=== PATIENT | male | born 1950 | race Two or more races ===

== ENCOUNTER 2024-07-08 10:12 | Emergency (ER) | payer MEDICARE, MEDICAID, SELFPAY ==
[2024-07-08 10:23] VITALS: BP 120/71; PULSE 86; RESP 16; TEMP 36.9; O2SAT 100; BMI 21.8
--- NOTE | 2024-07-08 10:26 | XR_ITS ---
Examination: Duplex scan of the lower extremity, unilateral right complete Date and time of exam: July 08, 2024 1147 hours INDICATIONS: Right foot and leg pain beginning 2 weeks ago Technique: Duplex scan of the extremity veins using B-mode/grayscale imaging and Doppler spectral analysis and color flow Attention is directed to internal echogenicity, compression and augmentation involving these veins, color flow assessment, spectral analysis Findings: Major deep venous structures in the extremity demonstrate normal course and caliber. There is no evidence of deep vein thrombosis. Normal color flow and spectral analysis Impression: Negative for DVT..
--- NOTE | 2024-07-08 10:26 | XR_ITS ---
Examination: Arterial duplex lower extremity study unilateral right lower extremity Date and time of exam: July 08, 2024 1155 hours INDICATIONS: Nonhealing foot ulcers 22 weeks ago Findings: Duplex sonographic imaging of the lower extremity arteries using B-mode/Woodall scale imaging and Doppler spectral analysis and color flow. Right common femoral artery demonstrates triphasic flow. Right superficial femoral artery demonstrates monophasic flow. Right popliteal artery demonstrates monophasic flow. Right posterior tibial artery demonstrated monophasic flow. Impression: Significant peripheral obstructive arterial disease right lower extremity Consider correlation with CTA abdominal aorta iliofemoral runoff post contrast follow-up
--- NOTE | 2024-07-08 10:27 | PD.EDRME ---
Rapid Medical Screening Exam RME Arrival date/time: 07/08/24 10:12 74-year-old diabetic male presents emergency department complaints of infection to the right foot. Patient reports being on Augmentin per the daughter symptoms not improved Chief Complaint: Skin/Abscess/Foreign Body Time Seen by Provider: 07/08/24 10:14 Vital signs: Vital Signs Temperature 98.4 F 07/08/24 10:23 Pulse Rate 86 07/08/24 10:23 Respiratory Rate 16 07/08/24 10:23 Blood Pressure 120/71 07/08/24 10:23 Pulse Oximetry (%) 100 07/08/24 10:23 Oxygen Delivery Method Room Air 07/08/24 10:23
[2024-07-08 11:35] LABS: Basophils # (Auto) 0.1 Thou/mm3 (0.0-0.2); Basophils % (Auto) 1 % (0-2.5); Eosinophils # (Auto) 0.1 Thou/mm3 (0.0-0.5); Eosinophils % (Auto) 1 % (0-10); Hematocrit 36.8 % (41.0-53.0); Hemoglobin 12.2 g/dL (13.5-16.0); Immature Granulocytes % (Auto) 0 % (0-0); Immature Granulocytes Auto 0.03 Thou/mm3 (0.00-0.00); Lymphocytes # (Auto) 2.1 Thou/mm3 (1.0-4.8); Lymphocytes % (Auto) 23 % (10-50); Mean Corpuscular HGB Conc 33.2 g/dl (31.0-37.0); Mean Corpuscular Hemoglobin 29.5 pg (25.0-35.0); Mean Corpuscular Volume 89 fL (80-100); Monocytes # (Auto) 0.5 Thou/mm3 (0.0-0.8); Monocytes % (Auto) 6 % (0-12); Neutrophils # (Auto) 6.1 Thou/mm3 (1.8-7.7); Neutrophils % (Auto) 68 % (37-80); Nucleated Red Blood Cell % 0 /100 WBC (0); Platelet Count 311 Thou/mm3 (140-440); RDW Standard Deviation 44.5 fL (35.1-43.9); Red Blood Count 4.13 Miln/mm3 (4.50-5.90); White Blood Count 8.9 Thou/mm3 (3.8-10.6)
[2024-07-08 11:51] LABS: Partial Thromboplastin Time 32.3 Seconds (22.0-36.0); Prothrombin Time 11.2 Seconds (9.0-12.2)
[2024-07-08 12:02] LABS: Sed Rate (ESR) 36 mm/hr (0-20)
[2024-07-08 12:11] LABS: Alanine Aminotransferase 22 U/L (10-49); Albumin, Serum 4.6 gm/dL (3.4-4.8); Albumin/Globulin Ratio 1.8 (1.2-2.2); Alkaline Phosphatase 129 U/L (46-116); Anion Gap 5 (7-16); Aspartate Amino Transferase 30 U/L (0-34); BUN/Creatinine Ratio 16 Ratio (12-20); Bilirubin,Total 0.6 mg/dL (0.3-1.2); Blood Urea Nitrogen 16 mg/dL (9-23); C-Reactive Protein < 0.4 mg/dL (0.0-0.9); Calcium 9.7 mg/dL (8.3-10.6); Calcium (Corrected) 9.7 mg/dL (8.5-10.1); Carbon Dioxide 27.1 mMol/L (20.0-31.0); Chloride 105 mMol/L (98-107); Estimated Creatinine Clearance 53.6 mL/min (>60); Globulin 2.6 gm/dL (2.3-3.5); Glucose 256 mg/dL (74-106); Osmolality,Calculated 284 (275-295); Potassium 4.3 mMol/L (3.4-5.1); Procalcitonin 0.05 ng/ml (0.0-0.49); Sodium 137 mMol/L (136-145); Total Protein 7.2 gm/dL (5.7-8.2); eGFR > 60 See Note
[2024-07-08 14:42] VITALS: BP 148/74; PULSE 79; RESP 16; TEMP 36.9; O2SAT 100
--- NOTE | 2024-07-08 14:46 | EDNOTE_ITS ---
Lower Extremity Injury RME/HPI General Chief Complaint: Skin/Abscess/Foreign Body Stated Complaint: RIGHT FOOT WOUNDS Time Seen by Provider: 07/08/24 10:14 Source: patient and family Arrival date/time: 07/08/24 10:12 This is a 74-year-old male with significant past medical history of hypertension, diabetes, PAD with stents. Who presented to the emergency department for complaints of right lower leg pain and 3 ulcers. According to the patient he seen his PCP today and was sent over to rule out osteomyelitis. According to the patient daughter she did have an outpatient x-ray which demonstrated no bone destruction, he did receive Augmentin outpatient which she completed for 3 sores that he has on his right lateral foot. According to the patient he has not had any fever no chills. He does have a history of severe PAD in which he follows up with [facility] vascular in which she has had multiple stents and currently on Plavix. Mode of arrival: ambulatory Limitations: no limitations RME / HPI RME / HPI Narrative: 07/08/24 10:12 74-year-old diabetic male presents emergency department complaints of infection to the right foot. Patient reports being on Augmentin per the daughter symptoms not improved Related Data Home Medications ?Medication ?Instructions ?Recorded ?Confirmed insulin lispro 100 unit/mL 4 - 6 unit subcut BID 06/15/19 06/15/19 subcutaneous pen (Humalog KwikPen (U-100) Insulin) Allergies Allergy/AdvReac Type Severity Reaction Status Date / Time ibuprofen Allergy Intermediate Hives Verified 11/03/20 13:19 Review of Systems Review of Systems Systems Reviewed: All systems reviewed, normal except as documented Narrative Review of Systems: Gen: No fever, no chills, no weight loss EYES: No discharge, no visual changes, no pain HEENT: No ear pain, no congestion, no sore throat PULM: No shortness of breath, no cough, no congestion CV: No chest pain, no dyspnea on exertion, no palpitations GI: No nausea, no vomiting, no diarrhea, no pain, no constipation : No frequency, no urgency,? no dysuria Musc/skel:+chronic foot/ leg pain, no back pain Skin: +ulcer to right foot Psyc: No hallucinations, no depression Heme/Lymph: No easy bleeding or bruising tendencies Neuro: No weakness, no headache ED Exam General Limitations: Present no limitations General appearance: Present alert and in no apparent distress Head Head exam: Present atraumatic Eye Eye exam: Present normal appearance, PERRL and EOMI ENT ENT exam: Present normal exam, normal oropharynx and mucous membranes moist Neck Neck exam: Present normal inspection, full ROM and trachea midline Chest Chest inspection: Present normal inspection and symmetric chest wall rise Respiratory Respiratory exam: Present normal lung sounds bilaterally Cardiovascular Cardiovascular exam: Present regular rate, normal rhythm and normal heart sounds Abdominal Exam Abdominal exam: Present soft and normal bowel sounds; Absent distention, tenderness or guarding Extremities Exam Extremities exam: Present full ROM Expanded Lower Extremity Exam Lower leg exam: Absent tenderness, swelling or Homans' sign Top foot image: 2 1. #1Right lateral foot +small lesion, does not appear infected #2-Mild punctuate area noted to dorsum of right foot +pulses, no cyanosis or discoloration cap refill normal Neurovascular/Tendon exam: Present normal capillary refill; Absent foot drop Gait: observed and normal Back Exam Back exam: Present normal inspection and full ROM Neurological Exam Neurological exam: Present alert, oriented X3 and CN II-XII intact Psychiatric Psychiatric exam: Present normal affect and normal mood Skin Skin exam: Present warm, dry, intact and normal color Course Quality Measures none Orders Category Date Time Status Diet Carbohydrate Consistent Diet 07/08/24 Lunch Active US arterial duplex LE RT Stat Exams 07/08/24 10:26 Completed US venous doppler LE RT Stat Exams 07/08/24 10:26 Completed Blood Culture (Lab) Stat Lab 07/08/24 10:48 Received CBC Stat Lab 07/08/24 10:52 Completed CMP [Comprehensive Metabolic Panel] Stat Lab 07/08/24 10:52 Completed CRP [C-Reactive Protein] Stat Lab 07/08/24 10:52 Completed ESR [Sed Rate (ESR)] Stat Lab 07/08/24 10:52 Completed Lactic Acid [Lactate (Lactic Acid)] Stat Lab 07/08/24 10:52 Completed PT [Prothrombin Time with INR] Stat Lab 07/08/24 10:52 Completed PTT [Partial Thromboplastin Time] Stat Lab 07/08/24 10:52 Completed Procalcitonin Stat Lab 07/08/24 10:52 Completed Vital Signs Vital signs: Vital Signs Temperature 98.4 F 07/08/24 10:23 Pulse Rate 86 07/08/24 10:23 Respiratory Rate 16 07/08/24 10:23 Blood Pressure 120/71 07/08/24 10:23 Pulse Oximetry (%) 100 07/08/24 10:23 Oxygen Delivery Method Room Air 07/08/24 10:23 Extremity Injury, Lower MDM Narrative MDM Narrative:: This is a 74-year-old male with significant past medical history of hypertension, diabetes, PAD with stents. Who presented to the emergency department for complaints of right lower leg pain and 3 ulcers. According to the patient he seen his PCP today and was sent over to rule out osteomyelitis. According to the patient daughter she did have an outpatient x-ray which demonstrated no bone destruction, he did receive Augmentin outpatient which she completed for 3 sores that he has on his right lateral foot. According to the patient he has not had any fever no chills. He does have a history of severe PAD in which he follows up with [facility] in which she has had multiple stents and currently on Plavix. Patient has chronic PAD. Foot does not appear to have osteomyelitis or infection. Patient has no leukocytosis, no bandemia. Patient's pain and sores are mostly related to his severe peripheral artery disease. Patient does have a follow-up appointment with vascular for [place] on Saturday for procedure. At this time I believe the patient is this position for discharge and follow-up closely with PCP and his vascular surgeon. Strict ER precautions to return if there is any changes in the temperature or pain or pulses in his feet. Family agreed with plan Patient data External records reviewed:: [facility] previous records Clinical information provided by:: patient and family Social determinants that could affect healthcare access:: none Patient has the following chronic illnesses:: Diabetes, PAD, hypertension, hyperlipidemia How is presenting disease/condition affected by chronic disease/condition?: e xacerbated by Evaluation data The following diagnostics were reviewed and interpreted by me:: lab results and radiology exam(s) Lab and/or radiology exams considered but not ordered:: yes Interpretation Summary: Examination: Duplex scan of the lower extremity, unilateral right complete Date and time of exam: July 08, 2024 1147 hours INDICATIONS: Right foot and leg pain beginning 2 weeks ago Technique: Duplex scan of the extremity veins using B-mode/grayscale imaging and Doppler spectral analysis and color flow Attention is directed to internal echogenicity, compression and augmentation involving these veins, color flow assessment, spectral analysis Findings: Major deep venous structures in the extremity demonstrate normal course and caliber. There is no evidence of deep vein thrombosis. Normal color flow and spectral analysis Impression: Negative for DVT.. Examination: Arterial duplex lower extremity study unilateral right lower extremity Date and time of exam: July 08, 2024 1155 hours INDICATIONS: Nonhealing foot ulcers 22 weeks ago Findings: Duplex sonographic imaging of the lower extremity arteries using B-mode/Woodall scale imaging and Doppler spectral analysis and color flow. Right common femoral artery demonstrates triphasic flow. Right superficial femoral artery demonstrates monophasic flow. Right popliteal artery demonstrates monophasic flow. Right posterior tibial artery demonstrated monophasic flow. Impression: Significant peripheral obstructive arterial disease right lower extremity Consider correlation with CTA abdominal aorta iliofemoral runoff post contrast follow-up Examination: Foot, right, 3 views Technique: AP, oblique, lateral views foot, 3 views Date and time of exam: July 02, 2024 0958 hours INDICATIONS: Patient stepped on a nail one month ago with injury to the foot, redness swelling and pain post injury FINDINGS: Severe osteopenia Soft tissue vascular calcification. No fracture No celestino cortical bone destruction IMPRESSION: No celestino cortical bone destruction If symptoms persist, consider repeat MRI foot without contrast follow-up Medications / Prescriptions Medications or Prescriptions considered but not ordered:: no Medication administrations:: no Consultations Consultation(s) initiated? (list below): No Diagnosis Extremity Injury, Lower Differential Diagnosis: ankle sprain and strain, acute internal derangement of knee and other (Arterial occlusion, DVT, osteomyelitis) Most likely diagnosis given after review of the tests above:: Peripheral artery disease, Admission Indicated Admission indicated?: not indicated Admission Request Was there a request for admission?: No Disposition Plan Disposition Plan: Discharge Discharge Attestation Discharge Attestation: The patient and all family members were given an opportunity to ask questions and understood the discharge instructions. Discharge instructions specifically effects, indications for sooner follow up or return to the emergency department, and the expected course of current diagnosis. 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 We did go ahead and fax his information over of both imaging You might want to ask for a disc with imaging at medical records, before your appointment. As discussed your symptoms are mostly related to PAD. If you gallop any symptoms of cold and painful foot please return to the emergency department as soon as possible. Print Language: Nepali Stand Alone Forms: Jami Award Info., Patient Portal Info Letter PA/JAYME Supervising Physician DAILY/JAYME Supervising Physician: Dr. Bautista
== END 2024-07-08 15:11 | disposition home or self-care (01) ==
PROVIDERS: Nurse Practitioner Primary Care; Emergency Provider Emergency Medicine; PCP Physician Assistant
DX: E11.621 Type 2 diabetes mellitus with foot ulcer (principal); E11.51 Type 2 diabetes mellitus with diabetic peripheral angiopathy without gangrene; I70.235 Atherosclerosis of native arteries of right leg with ulceration of other part of foot; L97.519 Non-pressure chronic ulcer of other part of right foot with unspecified severity
CPT/HCPCS: 36415; 80053; 83605; 84145; 85025; 85610; 85652; 85730; 86140; 87040; 93926; 93971; 99284

== ENCOUNTER → 2024-07-30 | Outpatient (CLI) | payer MEDICARE, MEDICAID, SELFPAY ==
[2024-07-30 16:06] LABS: Basophils # (Auto) 0.1 Thou/mm3 (0.0-0.2); Basophils % (Auto) 1 % (0-2.5); Eosinophils # (Auto) 0.1 Thou/mm3 (0.0-0.5); Eosinophils % (Auto) 1 % (0-10); Hematocrit 34.6 % (41.0-53.0); Hemoglobin 11.3 g/dL (13.5-16.0); Immature Granulocytes % (Auto) 0 % (0-0); Immature Granulocytes Auto 0.02 Thou/mm3 (0.00-0.00); Lymphocytes # (Auto) 2.4 Thou/mm3 (1.0-4.8); Lymphocytes % (Auto) 32 % (10-50); Mean Corpuscular HGB Conc 32.7 g/dl (31.0-37.0); Mean Corpuscular Hemoglobin 29.4 pg (25.0-35.0); Mean Corpuscular Volume 90 fL (80-100); Monocytes # (Auto) 0.4 Thou/mm3 (0.0-0.8); Monocytes % (Auto) 5 % (0-12); Neutrophils # (Auto) 4.6 Thou/mm3 (1.8-7.7); Neutrophils % (Auto) 60 % (37-80); Nucleated Red Blood Cell % 0 /100 WBC (0); Platelet Count 371 Thou/mm3 (140-440); Red Blood Count 3.85 Miln/mm3 (4.50-5.90); White Blood Count 7.6 Thou/mm3 (3.8-10.6)
[2024-07-30 16:26] LABS: Alanine Aminotransferase 20 U/L (10-49); Albumin, Serum 4.3 gm/dL (3.4-4.8); Alkaline Phosphatase 105 U/L (46-116); Anion Gap 7 (7-16); Aspartate Amino Transferase 29 U/L (0-34); BUN/Creatinine Ratio 14 Ratio (12-20); Bilirubin,Total 0.5 mg/dL (0.3-1.2); Blood Urea Nitrogen 18 mg/dL (9-23); Calcium 9.3 mg/dL (8.3-10.6); Calcium (Corrected) 9.3 mg/dL (8.5-10.1); Chloride 106 mMol/L (98-107); Creatinine (Component) 1.3 mg/dL (0.6-1.3); Globulin 2.1 gm/dL (2.3-3.5); Glucose 156 mg/dL (74-106); Osmolality,Calculated 282 (275-295); Potassium 4.3 mMol/L (3.4-5.1); Sodium 139 mMol/L (136-145); Total Protein 6.4 gm/dL (5.7-8.2); eGFR 58 See Note
== END | disposition home or self-care (01) ==
LOC: COPL 15:16
PROVIDERS: PCP Physician Assistant; Referring Provider Physician Assistant; Visit Provider Physician Assistant
DX: L03.115 Cellulitis of right lower limb (principal)
CPT/HCPCS: 36415; 80053; 85025

== ENCOUNTER 2024-09-25 14:48 | Emergency (ER) | payer MEDICARE, MEDICAID, SELFPAY ==
[2024-09-25 15:12] VITALS: PULSE 76; RESP 18; O2SAT 98; BMI 22.1
[2024-09-25 15:24] VITALS: BP 132/66; PULSE 75; RESP 18; TEMP 36.8; O2SAT 100
--- NOTE | 2024-09-25 15:46 | XR_ITS ---
Examination: Duplex scan of the upper extremity, unilateral right Date and time of exam: September 25, 2024 1613 hrs. Indications: Right arm swelling and pain today Technique: Duplex scan of the extremity veins using B-mode/grayscale imaging and Doppler spectral analysis and color flow Attention is directed to internal echogenicity, compression and augmentation involving these veins, color flow assessment, spectral analysis Findings: Major deep venous structures in the extremity demonstrate normal course and caliber. There is no evidence of deep vein thrombosis. Normal color flow and spectral analysis Impression: Negative for DVT
--- NOTE | 2024-09-25 17:26 | EDNOTE_ITS ---
<Statement entered by Moriah Roe MD - 09/29/24 07:14> As co-signing physician, I was present and available for consult prn. I concur with the plan and care as documented by the midlevel provider. ED Extremity Problem RME/HPI General Chief complaint: Extremity Problem,Nontraumatic Stated complaint: PICC LINE ISSUES Time Seen by Provider: 09/25/24 15:24 Source: patient and family Arrival date/time: 09/25/24 14:48 This is a 74-year-old male who presented to the emergency department with complaints of possible swelling at the site of his PICC line. The patient has had the PICC line since August this year for IV antibiotics for history of osteomyelitis. Patient was sent [facility] by [facility] for an ultrasound to rule out DVT, and to assess the functionality of the PICC line. Patient reports every time he has the medication administered he has some slight pain at that site. No reports of chest pain, shortness of breath no reports of fever or chills. Mode of arrival: ambulatory Limitations: no limitations Related Data Home Medications ?Medication ?Instructions ?Recorded ?Confirmed insulin lispro 100 unit/mL 4 - 6 unit subcut BID 06/1506/15/19 subcutaneous pen (Humalog KwikPen (U-100) Insulin) Allergies Allergy/AdvReac Type Severity Reaction Status Date / Time ibuprofen Allergy Intermediate Hives Verified 11/03/20 13:19 Review of Systems Review of Systems Systems Reviewed: All systems reviewed, normal except as documented Narrative Review of Systems: Gen: No fever, no chills, no weight loss EYES: No discharge, no visual changes, no pain HEENT: No ear pain, no congestion, no sore throat PULM: No shortness of breath, no cough, no congestion CV: No chest pain, no dyspnea on exertion, no palpitations GI: No nausea, no vomiting, no diarrhea, no pain, no constipation : No frequency, no urgency, no dysuria Musc/skel: No joint pain, no back pain Skin: No rash Psyc: No hallucinations, no depression Heme/Lymph: No easy bleeding or bruising tendencies Neuro: No weakness, no headache ED Exam General Limitations: Present no limitations General appearance: Present alert and in no apparent distress Head Head exam: Present atraumatic Eye Eye exam: Present normal appearance, PERRL and EOMI ENT ENT exam: Present normal exam, normal oropharynx and mucous membranes moist Neck Neck exam: Present normal inspection, full ROM and trachea midline Chest Chest inspection: Present normal inspection and symmetric chest wall rise Respiratory Respiratory exam: Present normal lung sounds bilaterally Cardiovascular Cardiovascular exam: Present regular rate, normal rhythm and normal heart sounds Abdominal Exam Abdominal exam: Present soft and normal bowel sounds Extremities Exam Extremities exam: Present normal inspection, full ROM and other (Right upper arm PICC line site appears normal no swelling no tenderness no ecchymosis.) Back Exam Back exam: Present normal inspection and full ROM Neurological Exam Neurological exam: Present alert, oriented X3 and CN II-XII intact Psychiatric Psychiatric exam: Present normal affect and normal mood Skin Skin exam: Present warm, dry, intact and normal color Course Quality Measures none Orders Category Date Time Status Miscellaneous Nursing Order NOW Care 09/25/24 15:46 Completed US venous doppler UE RT Stat Exams 09/25/24 15:46 Completed Vital Signs Vital signs: Vital Signs Temperature 98.2 F 09/25/24 15:24 Pulse Rate 75 09/25/24 15:24 Respiratory Rate 18 09/25/24 15:24 Blood Pressure 132/66 H 09/25/24 15:24 Pulse Oximetry (%) 100 09/25/24 15:24 Oxygen Delivery Method Room Air 09/25/24 15:24 Extremity Problem MDM Narrative MDM Narrative:: This is a 74-year-old male here from [facility] in evaluation of his PICC line to his right upper forearm. Patient reports every time he has his medication infused he has mild pain at the injection site. There is no swelling tenderness upon palpation. His PICC line was assessed by a nurse which flushed and he was able to have return of blood without any difficulty. Patient denied pain at the time of axis. There was an ultrasound done of that limb which demonstrated negative for DVT. I discussed with patient if he continues to have pain or difficulties with the PICC line he might need it changed and this can be done as outpatient basis. Advised to follow-up with his PCP or return to the emergency department this any worsening symptoms any condition. Patient data External records reviewed:: [facility] previous records Clinical information provided by:: patient Social determinants that could affect healthcare access:: none Patient has the following chronic illnesses:: History of severe PAD, hypertension, hyperlipidemia, diabetes How is presenting disease/condition affected by chronic disease/condition?: exacerbated by Evaluation data The following diagnostics were reviewed and interpreted by me:: radiology exam(s) Lab and/or radiology exams considered but not ordered:: no Interpretation Summary: Examination: Duplex scan of the upper extremity, unilateral right Date and time of exam: September 25, 2024 1613 hrs. Indications: Right arm swelling and pain today Technique: Duplex scan of the extremity veins using B-mode/grayscale imaging and Doppler spectral analysis and color flow Attention is directed to internal echogenicity, compression and augmentation involving these veins, color flow assessment, spectral analysis Findings: Major deep venous structures in the extremity demonstrate normal course and caliber. There is no evidence of deep vein thrombosis. Normal color flow and spectral analysis Impression: Negative for DVT Medications / Prescriptions Medications or Prescriptions considered but not ordered:: No Medication administrations:: No Consultations Consultation(s) initiated? (list below): No Diagnosis Extremity Problem Differential Diagnosis: cellulitis, superficial thrombophlebitis, deep venous thrombosis of upper extremity and lower extremity edema Most likely diagnosis given after review of the tests above:: Access to PICC line. Admission Indicated Admission indicated?: not indicated Admission Request Was there a request for admission?: No Disposition Plan Disposition Plan: Discharge Discharge Attestation Discharge Attestation: The patient and all family members were given an opportunity to ask questions and understood the discharge instructions. Discharge instructions specifically effects, indications for sooner follow up or return to the emergency department, and the expected course of current diagnosis. Patient condition: Stable Discharge Plan Plan Patient Disposition: HOME (Self Care) Patient condition on transfer: Stable Prescriptions/Referrals Prescriptions/Med Rec: No Action insulin lispro [Humalog KwikPen Insulin] 100 unit/mL insulin pen 4 - 6 unit subcut BID Patient Comments: inject SUBCUTANEOUSLY 4 TO 6 units three times a day before meals Referrals: Shahida Mackenzie PA-C [Primary Care Provider] - In 1 week Problem List Clinical Impression: Encounter for peripherally inserted central catheter (PICC) flush Patient/Caregiver Discharge Instructions Discharge Activity: activity as tolerated Education Materials: Caring for Your PICC Dc Additional Instructions: Your ultrasound of your upper limb is negative for any blood clots. The area appears to be nonswollen no infection. Your PICC line was flushed without any issues. Please follow-up with your primary doctor or clinic as directed. Return to the emergency department this any worsening symptoms change in condition. Print Language: Slovak Stand Alone Forms: Jami Award Info., Patient Portal Info Letter PA/ELEVATED MOTORMAN Supervising Physician PA/ELEVATED MOTORMAN Supervising Physician: Dr. Jenkins
--- NOTE | 2024-09-25 18:05 | PC.NURSE ---
report given to Emilia riley at [facility]
== END 2024-09-25 18:25 | disposition skilled nursing facility (03) ==
PROVIDERS: Emergency Provider Emergency Medicine; PCP Physician Assistant
DX: Z45.2 Encounter for adjustment and management of vascular access device (principal); M79.601 Pain in right arm; E11.51 Type 2 diabetes mellitus with diabetic peripheral angiopathy without gangrene; E78.5 Hyperlipidemia, unspecified; I10 Essential (primary) hypertension
CPT/HCPCS: 93971; 99284

== ENCOUNTER → 2024-10-09 | Outpatient (CLI) | payer MEDICARE, MEDICAID, SELFPAY ==
--- NOTE | 2024-10-09 | XR_ITS ---
Examination: Foot, right, 3 views Technique: AP, oblique, lateral views foot, 3 views Date and time of exam: October 09, 2024 1246 hours Comparison July 02, 2024 INDICATIONS: Right foot redness swelling and pain months, patient stepped on a nail May 2024 FINDINGS: Severe osteopenia Soft tissue defect at the fifth metatarsophalangeal joint Cortical bone destruction involving the distal fifth metatarsal No fracture IMPRESSION: Osteomyelitis distal fifth metatarsal Consider repeat MRI foot without contrast follow-up
== END | disposition home or self-care (01) ==
LOC: CDIM 11:41
PROVIDERS: Referring Provider Podiatrist; Visit Provider Podiatrist
DX: M86.8X7 Other osteomyelitis, ankle and foot (principal)
CPT/HCPCS: 73630

== ENCOUNTER → 2024-11-16 | Outpatient (CLI) | payer MEDICARE, MEDICAID, SELFPAY ==
--- NOTE | 2024-11-16 07:00 | XR_ITS ---
Examination: MRI right foot, without contrast Date and time of exam: November 16, 2024 0720 hours Comparison MRI foot October 31, 2023 INDICATIONS: Nonhealing wound right foot 3 months, difficulty walking, MRI foot October 31, 2023 soft tissue defect in the distal fifth metatarsal but no celestino cortical bone destruction Technique: Multiple axial sagittal and coronal images of the right foot have been obtained with the Siemens high-resolution 1.5 Luanne MRI scanner. Images obtained include T2-weighted fat-suppressed sagittal sections, TR 3500, TE 46, T2 weighted coronal fat suppressed images, TR 3050, TE 84, T2-weighted transverse fat suppressed images, TR 3260, TE 63, proton density transverse images, TR 4720 TE 46, and T1 weighted coronal images, TR 560, TE 13. Findings: Early cortical bone erosion distal fifth metatarsal on the lateral side, axial image 17 with associated soft tissue infection No soft tissue abscess Proximal and distal phalanges fifth digit intact Edema dorsum of the foot IMPRESSION: Early osteomyelitis distal fifth metatarsal
== END | disposition home or self-care (01) ==
PROVIDERS: PCP Physician Assistant; Referring Provider Podiatrist; Visit Provider Podiatrist
DX: M86.8X7 Other osteomyelitis, ankle and foot (principal)
CPT/HCPCS: 73718

== ENCOUNTER 2025-04-27 20:46 | Emergency (ER) | payer MEDICARE, MEDICAID, SELFPAY ==
--- NOTE | 2025-04-27 20:51 | PD.EDADULT ---
ED General RME/HPI General Chief complaint: Altered Mental Status Stated complaint: LOW BLOOD SUGAR Time Seen by Provider: 04/27/25 20:50 Arrival date/time: 04/27/25 20:46 CC: Hypoglycemia HPI patient presents to the ER via EMS after being found passed out in a [employer] function. Initial blood glucose was 41, then patient was given D25, and at which time the patient became awake and alert. The patient per report from EMS has a no focal deficits Glascow coma 15 states he took insulin but did not eat anything. Patient denies any pain. EMS reports stable vital signs and route. Related Data Home Medications ?Medication ?Instructions ?Recorded ?Confirmed insulin lispro 100 unit/mL 4 - 6 unit subcut BID 06/15/19 06/15/19 subcutaneous pen (Humalog KwikPen (U-100) Insulin) Allergies Allergy/AdvReac Type Severity Reaction Status Date / Time ibuprofen Allergy Intermediate Hives Verified 04/27/25 21:16 Review of Systems Review of Systems Narrative Review of Systems: GEN: No fever, no chills, no weight loss EYES: No discharge, no visual changes, no pain HEENT: No ear pain, no congestion, no sore throat PULM: No shortness of breath, no cough, no congestion CV: No chest pain, no dyspnea on exertion, no palpitations GI: No nausea, no vomiting, no diarrhea, no pain, no constipation : No frequency, no urgency, no dysuria MUSC/SKEL: No joint pain, no back pain SKIN: No rash PSYCH: No hallucinations, no depression HEME/LYMPH: No easy bleeding or bruising tendencies NEURO: No weakness, no headache ED Exam Narrative Physical exam: [General: Not in any acute distress Head normocephalic HEENT: Eyes pupils are PERRLA EOMs are intact mouth pink dry membranes uvula is midline swallow symmetrical phonation is normal. All other subsystems of HEENT are within acceptable limits Neck is supple nontender Chest equal chest rise nontender to palpation Respiratory: Clear to auscultation no wheezes crackles or rubs CV: Rate rhythm is regular no murmurs rubs or clicks Abdomen is soft nontender no masses positive bowel sounds all 4 quadrants Back: No CVA tenderness no spinous process tenderness from cervical spine thoracic and lumbar spine Skin: Intact no petechiae rash induration ulceration or crepitus Extremities: Moving all extremity against resistance cap refill less than 2 seconds neurosensory intact Neuro: Awake alert oriented x3 Glascow coma 15 no focal deficits] Course Course Course Narrative: Repeat Accu-Chek at 2130 shows 148. The patient's initial Accu-Chek was 41 upon initial assessment by EMS, after D10 the patient went to 260 and now was decreased to 248. In the interim the patient received D10 he has eaten a half a sandwich, drink 1 box of apple juice. 2247, blood sugars 140. Patient to be discharged health Quality Measures none Orders Category Date Time Status Glucose [Bedside Blood Glucose] Q1HR Care 04/27/25 20:51 Active CBC Stat Lab 04/27/25 21:00 Completed CMP [Comprehensive Metabolic Panel] Stat Lab 04/27/25 21:00 Completed Vital Signs Vital signs: Vital Signs Temperature 97.6 F 04/27/25 20:57 Pulse Rate 65 04/27/25 20:57 Respiratory Rate 18 04/27/25 20:57 Blood Pressure 160/77 H 04/27/25 20:57 Pulse Oximetry (%) 100 04/27/25 20:57 Oxygen Delivery Method Room Air 04/27/25 20:57 Discharge Plan Plan Patient Disposition: HOME (Self Care) Patient condition on transfer: Stable Prescriptions/Referrals Prescriptions/Med Rec: No Action insulin lispro [Humalog KwikPen Insulin] 100 unit/mL insulin pen 4 - 6 unit subcut BID Patient Comments: inject SUBCUTANEOUSLY 4 TO 6 units three times a day before meals Problem List Clinical Impression: Hypoglycemia Patient/Caregiver Discharge Instructions Education Materials: How to Check Your Blood Sugar Additional Instructions: Please if you give the insulin make sure you eat food afterwards. Print Language: French Stand Alone Forms: Jami Award Info., Work/School Release, Patient Portal Info Letter PA/SENIOR TECHNICAL PROJECT MANAGER Supervising Physician PA/SENIOR TECHNICAL PROJECT MANAGER Supervising Physician: Jw MALLORYP [facility] Clinical Information Provided by patient and EMS Medical Records [facility]ed [facility] Meds/Rx Considered, not Ordered None Labs/Rad/Tests considered, not Ordered None Lab Interpretation Lab(s) interpretation(s): CBC shows no leukocytosis and H&H of 12.1 and 37.1 respectively with platelets of 230. CMP shows a chloride of 108 creatinine of 1.4 glucose of 121. No other transaminitis or T. bili elevation.
[2025-04-27 20:57] VITALS: BP 160/77; PULSE 65; RESP 18; TEMP 36.4; O2SAT 100
[2025-04-27 21:03] VITALS: BP 173/85; PULSE 61; RESP 17; O2SAT 100
[2025-04-27 21:16] VITALS: PULSE 78; RESP 20; O2SAT 100
[2025-04-27 21:25] LABS: Basophils # (Auto) 0.1 Thou/mm3 (0.0-0.2); Basophils % (Auto) 1 % (0-2.5); Eosinophils # (Auto) 0.2 Thou/mm3 (0.0-0.5); Eosinophils % (Auto) 2 % (0-10); Hematocrit 37.1 % (41.0-53.0); Hemoglobin 12.1 g/dL (13.5-16.0); Immature Granulocytes Auto 0.04 Thou/mm3 (0.00-0.00); Lymphocytes # (Auto) 2.0 Thou/mm3 (1.0-4.8); Lymphocytes % (Auto) 22 % (10-50); Mean Corpuscular HGB Conc 32.6 g/dl (31.0-37.0); Mean Corpuscular Hemoglobin 28.9 pg (25.0-35.0); Mean Corpuscular Volume 89 fL (80-100); Monocytes # (Auto) 0.8 Thou/mm3 (0.0-0.8); Monocytes % (Auto) 8 % (0-12); Neutrophils # (Auto) 6.2 Thou/mm3 (1.8-7.7); Neutrophils % (Auto) 67 % (37-80); Nucleated Red Blood Cell # 0.00 Thou/mm3 (0.00-0.00); Nucleated Red Blood Cell % 0 /100 WBC (0); Platelet Count 230 Thou/mm3 (140-440); RDW Standard Deviation 47.1 fL (35.1-43.9); Red Blood Count 4.19 Miln/mm3 (4.50-5.90); White Blood Count 9.3 Thou/mm3 (3.8-10.6)
[2025-04-27 21:44] LABS: Alanine Aminotransferase 13 U/L (10-49); Albumin, Serum 4.5 gm/dL (3.4-4.8); Albumin/Globulin Ratio 1.9 (1.2-2.2); Alkaline Phosphatase 96 U/L (46-116); Anion Gap 9 (7-16); Aspartate Amino Transferase 25 U/L (0-34); BUN/Creatinine Ratio 14 Ratio (12-20); Bilirubin,Total 0.7 mg/dL (0.3-1.2); Blood Urea Nitrogen 19 mg/dL (9-23); Calcium 9.7 mg/dL (8.3-10.6); Calcium (Corrected) 9.7 mg/dL (8.5-10.1); Carbon Dioxide 25.9 mMol/L (20.0-31.0); Chloride 108 mMol/L (98-107); Creatinine (Component) 1.4 mg/dL (0.6-1.3); Globulin 2.4 gm/dL (2.3-3.5); Glucose 121 mg/dL (74-106); Osmolality,Calculated 288 (275-295); Potassium 4.4 mMol/L (3.4-5.1); Sodium 143 mMol/L (136-145); Total Protein 6.9 gm/dL (5.7-8.2); eGFR 53 See Note
[2025-04-27 22:59] VITALS: BP 166/71; PULSE 70; RESP 18; TEMP 36.8; O2SAT 100
== END 2025-04-27 23:07 | disposition home or self-care (01) ==
PROVIDERS: Registered Nurse General Practice; Emergency Provider Emergency Medicine
DX: E16.2 Hypoglycemia, unspecified (principal)
CPT/HCPCS: 36415; 80053; 85025; 99283